=== PATIENT | female | born 1995 | race American Indian/Alaskan Native ===

== ENCOUNTER 2016-11-05 00:14 | Emergency (ER) | payer OTHER ==
[2016-11-05 03:18] LABS: Hematocrit 44.9 % (30.3-42.9); Hemoglobin 14.9 gm/dl (10.1-14.3); Mean Corpuscular HGB Conc 33 % (30-34); Mean Corpuscular Hemoglobin 28 pg (28-32); Mean Corpuscular Volume 83 fl (79-97); Platelet Count 303 K/mm3 (140-440); Red Blood Count 5.41 M/mm3 (3.65-5.03); Red Cell Distribution Width 12.9 % (13.2-15.2); White Blood Count 13.2 K/mm3 (4.5-11.0)
[2016-11-05 03:44] LABS: Alanine Aminotransferase 37 units/L (7-56); Albumin 4.2 g/dL (3.9-5); Albumin/Globulin Ratio 1.2 %; Alkaline Phosphatase 83 units/L (35-129); Anion Gap 16 mmol/L; Bilirubin,Total 0.4 mg/dL (0.1-1.2); Blood Urea Nitrogen 4 mg/dL (7-17); Calcium 9.5 mg/dL (8.4-10.2); Carbon Dioxide 28 mmol/L (22-30); Chloride 94.1 mmol/L (98-107); Glucose 378 mg/dL (65-100); Lipase 33 units/L (13-60); Potassium 4.2 mmol/L (3.6-5.0); Sodium 134 mmol/L (137-145); Total Protein 7.7 g/dL (6.3-8.2)
[2016-11-05 03:59] LABS: Blastocytes % (Manual) 0 %
[2016-11-05 04:01] LABS: Basophils % (Manual) 0 % (0.0-1.8)
[2016-11-05 04:02] LABS: Diff Status Complete; RBC Morphology Normal; Smudge Cells Few
[2016-11-05 05:55] LABS: Bacteria,Urine 1+ /HPF (Negative); Bilirubin,Urine NEG (Negative); Blood,Urine SM (Negative); Ketones,Urine TR mg/dL (Negative); Leukocyte Esterase,Urine SM (Negative); Mucus,Urine FEW /HPF; Nitrite,Urine NEG (Negative); Protein,Urine <15 mg/dL mg/dL (Negative); Urobilinogen,Urine < 2.0 mg/dL (<2.0)
[2016-11-05] MEDS ORDERED: NACL 0.9% 1000 ML IV ONE ×2 (10:30→13:53)
--- NOTE | 2016-11-05 11:35 | Emergency Department Report ---
HPI - General Chief Complaint: Abdominal Pain Time Seen by Provider: 11/05/16 10:21 - HPI HPI: Chief complaint: Abdominal pain, back pain HPI: Patient complains of intermittent abdominal pain for the last week and half. Patient denies nausea vomiting or diarrhea. Patient states it lasts about 10 minutes. Patient is currently not having any pain at all. Patient denies polyuria or polydipsia, vaginal discharge or dysuria. Patient has not been taking her metformin and she does not have strips for her Accu-Chek. Patient also complains of occasional nipple pain but is not currently experiencing this. Mode of arrival: [private car] Source: [Patient] Began: 2 weeks Duration: See above Context: See above. Patient is a hrg-[id number]-[id number] diabetic who is noncompliant with her metformin Quality: Crampy Severity: Currently 0 out of 10 Improved with: Nothing Worsened with: Nothing Associated signs and symptoms: See above ED Past Medical Hx - Past Medical History Previous Medical History?: Yes Hx Diabetes: Yes (type 2) - Surgical History Past Surgical History?: No - Social History Smoking Status: Current Every Day Smoker Substance Use Type: None - Medications Home Medications: Home Medications Medication Instructions Recorded Confirmed Last Taken Type Nitrofurantoin [place]/M-Cryst 100 mg PO Q12HR #14 capsule 11/05/16 Unknown Rx [Macrobid CAP] metFORMIN [Glucophage] 500 mg PO BID #60 tablet 11/05/16 Unknown Rx ED Review of Systems ROS: Stated complaint: LOWER BACK PAIN AND ABD PAIN Other details as noted in HPI ROS Constitutional: No fever ENT: No uri symptoms Cardiovascular: No chest pain Respiratory: No sob or cough GI: No nausea vomiting or diarrhea : No dysuria frequency or urgency, Skin: No rash Neuro: No focal weakness or numbness Psych: No depression Tai/lymph: No edema Physical Exam - Physical Exam Vital Signs: Vital Signs 11/05/16 01:34 Temperature 97.9 F Pulse Rate 78 Blood Pressure 146/92 O2 Sat by Pulse 99 Oximetry Physical Exam: GENERAL: The patient is a morbidly obese -K[place] female in no acute distress. HEENT: Normocephalic. Atraumatic. Extraocular motions are intact. Patient has moist mucous membranes. NECK: Supple. No meningitic signs are noted. There is no adenopathy noted. CHEST/LUNGS: Clear to auscultation. There is no respiratory distress noted. HEART/CARDIOVASCULAR: Regular. There is no tachycardia. There is no gallop rub or murmur. ABDOMEN: Abdomen is soft, nontender. Patient has normal bowel sounds. There is no abdominal distention. SKIN: There is no rash. There is no edema. There is no diaphoresis. NEURO: The patient is awake, alert, and oriented. The patient is cooperative. The patient has no focal neurologic deficits. The patient has normal speech. MUSCULOSKELETAL: There is no tenderness or deformity. There is no limitation range of motion. There is no evidence of acute injury. ED Course Vital Signs 11/05/16 01:34 Temperature 97.9 F Pulse Rate 78 Blood Pressure 146/92 O2 Sat by Pulse 99 Oximetry - Reevaluation(s) Reevaluation #1: 11/05/16 11:34 Patient is given 2 L of normal saline and 3 units of regular insulin IV. 11/05/16 13:58 Patient's repeat Accu-Chek was 325 and she will be given another liter of normal saline and 5 units of regular insulin. 11/05/16 14:36 Repeat Accu-Chek 236. ED Medical Decision Making - Lab Data Result diagrams: 11/05/16 01:54 11/05/16 01:54 Critical care attestation.: If time is entered above; I have spent that time in minutes in the direct care of this critically ill patient, excluding procedure time. ED Disposition Clinical Impression: Hyperglycemia due to type 2 diabetes mellitus Qualifiers: Diabetes mellitus long term care phlebotomist insulin use: unspecified longterm insulin use status Qualified Code(s): E11.65 - Type 2 diabetes mellitus with hyperglycemia UTI (urinary tract infection) Qualifiers: Urinary tract infection type: acute cystitis Hematuria presence: without hematuria Qualified Code(s): N30.00 - Acute cystitis without hematuria Disposition: DISCHARGED TO HOME OR SELFCARE Is pt being admited?: No Does the pt Need Aspirin: No Instructions: Abdominal Pain (ED), Diabetes Mellitus Type 2 in Adults (ED), Urinary Tract Infection in Women (ED) Prescriptions: metFORMIN [Glucophage] 500 mg PO BID #60 tablet Nitrofurantoin [place]/M-Cryst [Macrobid CAP] 100 mg PO Q12HR #14 capsule Referrals: [facility] [Provider Group] - 3-5 Days Time of Disposition: 14:41
[2016-11-05 14:42] VITALS: BP 124/74
== END 2016-11-05 15:15 | disposition home or self-care (01) ==
LOC: ED 00:14
DX: N30.00 Acute cystitis without hematuria (principal); E11.65 Type 2 diabetes mellitus with hyperglycemia; F17.200 Nicotine dependence, unspecified, uncomplicated; Z79.899 Other long term (current) drug therapy; Z79.84 Long term (current) use of oral hypoglycemic drugs
CPT/HCPCS: 36415; 80053; 81001; 81025; 82962; 83690; 85007; 85025; 96361; 96374; 96376; 99283; J7030; J1815

== ENCOUNTER 2016-11-23 00:14 | Emergency (ER) | payer SELFPAY ==
[2016-11-23 04:49] LABS: Bacteria,Urine 1+ /HPF (Negative); Bilirubin,Urine NEG (Negative); Blood,Urine SM (Negative); Ketones,Urine TR mg/dL (Negative); Leukocyte Esterase,Urine MOD (Negative); Nitrite,Urine NEG (Negative); Protein,Urine <15 mg/dL mg/dL (Negative); Urobilinogen,Urine < 2.0 mg/dL (<2.0)
[2016-11-23] MEDS ORDERED: MOTRIN PO ONE (05:06)
--- NOTE | 2016-11-23 05:11 | Emergency Department Report ---
HPI - General Chief Complaint: Abdominal Pain Time Seen by Provider: 11/23/16 04:45 - HPI HPI: 20-year-old -[place] female with a past medical history of diabetes type 2 since the age of 14 comes in complaining of lower abdominal pain 2 weeks. She denies any dysuria she denies any vaginal bleeding or vaginal discharge. She also denies any fever no nausea no vomiting. She complains of sharp pains on her nipples. Patient reports he has not taken any over-the- counter pain medication to address any of her pain. ED Past Medical Hx - Past Medical History Previous Medical History?: Yes Hx Diabetes: Yes (type 2) - Surgical History Past Surgical History?: No - Social History Smoking Status: Current Every Day Smoker Substance Use Type: Alcohol - Medications Home Medications: Home Medications Medication Instructions Recorded Confirmed Last Taken Type Nitrofurantoin [place]/M-Cryst 100 mg PO Q12HR #14 capsule 11/05/16 Unknown Rx [Macrobid CAP] metFORMIN [Glucophage] 500 mg PO BID #60 tablet 11/05/16 Unknown Rx Cephalexin [Keflex] 500 mg PO BID #14 capsule 11/23/16 Unknown Rx Ibuprofen [Motrin 800 MG tab] 800 mg PO Q8HR #30 tablet 11/23/16 Unknown Rx ED Review of Systems ROS: Stated complaint: ABD PAIN Other details as noted in HPI Physical Exam - Physical Exam Vital Signs: Vital Signs 11/23/16 00:35 Temperature 98.4 F Pulse Rate 106 H Respiratory 18 Rate Blood Pressure 136/96 O2 Sat by Pulse 99 Oximetry Physical Exam: GENERAL: Alert and oriented x3, no apparent distress, Normal Gait, atraumatic. HEAD: Head is normocephalic and a-traumatic. LUNGS: Symetrical with respiration, No wheezing, no rales or crackles, CTAB. HEART: S1, S2 present, regular rate and rhythm without murmur, no rubs, no gallops. ABDOMEN: No organomegaly was noted,Positive bowel sounds, soft, and non- distended. . Suprapubic tenderness. NO CVA tenderness. BREAST: Symetrical, Supple bilaterally, No Masses, lumps, lesions, ulcerations. NEUROLOGIC: No focal Deficit, Cranial nerves II through XII are grossly intact. No loss of sensation, No facial droop, PSYCHIATRIC: Mood is congruent with affect, denies suicidal or homicidal ideations. SKIN: Warm and dry, No lesions, No ulceration or induration present ED Course Vital Signs 11/23/16 00:35 Temperature 98.4 F Pulse Rate 106 H Respiratory 18 Rate Blood Pressure 136/96 O2 Sat by Pulse 99 Oximetry Critical care attestation.: If time is entered above; I have spent that time in minutes in the direct care of this critically ill patient, excluding procedure time. ED Disposition Clinical Impression: UTI (urinary tract infection) Qualifiers: Urinary tract infection type: site unspecified Hematuria presence: without hematuria Qualified Code(s): N39.0 - Urinary tract infection, site not specified Disposition: DISCHARGED TO HOME OR SELFCARE Is pt being admited?: No Does the pt Need Aspirin: No Condition: Stable Instructions: Abdominal Pain (ED) Additional Instructions: Please take antibiotics as prescribed. It is very important for her to follow- up with the primary care provider. Take ibuprofen for pain. Prescriptions: Cephalexin [Keflex] 500 mg PO BID #14 capsule Ibuprofen [Motrin 800 MG tab] 800 mg PO Q8HR #30 tablet Referrals: PRIMARY CARE [Primary Care Provider] - 3-5 Days Forms: Work/School Release Form(ED), Accompanied Note
[2016-11-23 05:30] VITALS: BP 109/68
== END 2016-11-23 05:29 | disposition home or self-care (01) ==
LOC: ED 00:14
DX: N39.0 Urinary tract infection, site not specified (principal); E11.9 Type 2 diabetes mellitus without complications; F17.200 Nicotine dependence, unspecified, uncomplicated
CPT/HCPCS: 81001; 81025; 99283

== ENCOUNTER 2016-12-15 01:24 | Emergency (ER) | payer SELFPAY ==
[2016-12-15 02:46] LABS: Hematocrit 43.6 % (30.3-42.9); Hemoglobin 14.4 gm/dl (10.1-14.3); Mean Corpuscular HGB Conc 33 % (30-34); Mean Corpuscular Hemoglobin 28 pg (28-32); Mean Corpuscular Volume 84 fl (79-97); Platelet Count 290 K/mm3 (140-440); Red Cell Distribution Width 13.2 % (13.2-15.2); White Blood Count 12.3 K/mm3 (4.5-11.0)
[2016-12-15 03:08] LABS: Alanine Aminotransferase 35 units/L (7-56); Albumin 4.2 g/dL (3.9-5); Albumin/Globulin Ratio 1.4 %; Alkaline Phosphatase 90 units/L (35-129); Anion Gap 18 mmol/L; BUN/Creatinine Ratio 11.42; Bilirubin,Total 0.3 mg/dL (0.1-1.2); Blood Urea Nitrogen 8 mg/dL (7-17); Calcium 9.9 mg/dL (8.4-10.2); Carbon Dioxide 27 mmol/L (22-30); Chloride 94.9 mmol/L (98-107); Glucose 400 mg/dL (65-100); Lipase 24 units/L (13-60); Potassium 4.2 mmol/L (3.6-5.0); Sodium 136 mmol/L (137-145); Total Protein 7.3 g/dL (6.3-8.2)
[2016-12-15 05:36] LABS: Bilirubin,Urine NEG (Negative); Blood,Urine NEG (Negative); Ketones,Urine TR mg/dL (Negative); Leukocyte Esterase,Urine TR (Negative); Nitrite,Urine NEG (Negative); Protein,Urine <15 mg/dL mg/dL (Negative); Urobilinogen,Urine < 2.0 mg/dL (<2.0)
[2016-12-15 06:12] LABS: Anisocytosis 1+; Basophils % (Manual) 0 % (0.0-1.8); Blastocytes % (Manual) 0 %
[2016-12-15 06:13] LABS: Diff Status Complete; Platelet Estimate Appe
--- NOTE | 2016-12-15 06:27 | Emergency Department Report ---
HPI - General Chief Complaint: Abdominal Pain Time Seen by Provider: 12/15/16 05:58 - HPI HPI: This is a 21-year-old Afro-Hungarian female presents to the emergency department with complaint of chronic UTI and yeast infections and occasional "side pain." She denies any current vaginal discharge, vaginal bleeding, current abdominal pain, nausea, vomiting, fever. Patient finished a course of Macrobid last month and also use some Monistat. She has a history of lat-pjmqzix-pkadifhqc diabetes but says she has been out of her metformin for the past 3-6 months that she does not have a primary care doctor and cannot get the refills consistently. No recent travel or sick contacts at home. ED Past Medical Hx - Past Medical History Previous Medical History?: Yes Hx Diabetes: Yes (type 2) - Surgical History Past Surgical History?: No - Social History Smoking Status: Current Every Day Smoker Substance Use Type: Alcohol - Medications Home Medications: Home Medications Medication Instructions Recorded Confirmed Last Taken Type Nitrofurantoin [place]/M-Cryst 100 mg PO Q12HR #14 capsule 11/05/16 Unknown Rx [Macrobid CAP] Cephalexin [Keflex] 500 mg PO BID #14 capsule 11/23/16 Unknown Rx Ibuprofen [Motrin 800 MG tab] 800 mg PO Q8HR #30 tablet 11/23/16 Unknown Rx Nystatin [Nystop Powder] 1 applicatio TP BID #1 bottle 12/15/16 Unknown Rx metFORMIN [Glucophage] 500 mg PO BID #60 tablet 12/15/16 Unknown Rx ED Review of Systems ROS: Stated complaint: ABD PAIN,POSS UTI Other details as noted in HPI Comment: All other systems reviewed and negative Constitutional: denies: chills, fever Eyes: denies: eye pain, eye discharge, vision change ENT: denies: ear pain, throat pain Respiratory: denies: cough, shortness of breath, wheezing Cardiovascular: denies: chest pain, palpitations Gastrointestinal: denies: nausea, vomiting Genitourinary: dysuria. denies: discharge Musculoskeletal: denies: back pain, joint swelling, arthralgia Skin: denies: rash, lesions Neurological: denies: headache, weakness, paresthesias Physical Exam - Physical Exam Vital Signs: Vital Signs 12/15/16 12/15/16 01:57 06:04 Temperature 98.2 F Pulse Rate 92 H 81 Respiratory 20 18 Rate Blood Pressure 145/90 Blood Pressure 125/83 [Left] O2 Sat by Pulse 97 99 Oximetry Physical Exam: GENERAL: The patient is well-developed well-nourished. HEENT: Normocephalic. Atraumatic. Extraocular motions are intact. Patient has moist mucous membranes. Pupils equal reactive to light bilaterally. NECK: Supple. Trachea is midline. CHEST/LUNGS: Clear to auscultation. There is no respiratory distress noted. HEART/CARDIOVASCULAR: Regular. There is no tachycardia. There is no gallop rub or murmur. ABDOMEN: Abdomen is soft, nontender. Patient has normal bowel sounds. There is no abdominal distention. No guarding or rebound tenderness. SKIN: Skin is warm and dry. There is some redness and irritation to the bilateral labia concerning for Joanie yeast infection. NEURO: The patient is awake, alert, and oriented. The patient is cooperative. The patient has no focal neurologic deficits. The patient has normal speech. MUSCULOSKELETAL: There is no tenderness or deformity. There is no limitation range of motion. There is no evidence of acute injury. : No vaginal or cervical lesions seen. Cervical os is closed. There is no vaginal bleeding. There is thick white discharge seen appears consistent with yeast. ED Course Vital Signs 12/15/16 12/15/16 01:57 06:04 Temperature 98.2 F Pulse Rate 92 H 81 Respiratory 20 18 Rate Blood Pressure 145/90 Blood Pressure 125/83 [Left] O2 Sat by Pulse 97 99 Oximetry ED Medical Decision Making - Lab Data Result diagrams: 12/15/16 02:23 12/15/16 02:23 - Medical Decision Making 21-year-old female presents with complaints of chronic UTI, chronic yeast infections and some intermittent abdominal side pain. However the patient denies any current dysuria, vaginal bleeding, abdominal pain, nausea, vomiting or fever. Her labs and unremarkable. Urinalysis does not show any UTI. Belly labs are normal. There is no significant leukocytosis. Vital signs stable throughout her ED course. Since patient does not have any current abdominal pain, I did not feel that any imaging was necessary at this time. Patient is not . A pelvic exam was done that shows thick white non-malodorous yeasty appearing discharge. A wet prep was sent that was negative for Trichomonas or BV. Patient treated with some Diflucan and due to the redness around the labia and inguinal region, she will get some nystatin. She'll be given referrals for primary care and encouraged to return to the ER with any worsening of her symptoms or any acute distress. Patient presented with hyperglycemia with a blood sugar of about 400. She was given some subcutaneous insulin without much improvement but then was given IV fluid and IV insulin and his come down to a more reasonable level. Patient will be given a prescription for her metformin. There are no signs of DKA or HHNK. - Differential Diagnosis UTI, , yeast infection, PID Critical Care Time: No Critical care attestation.: If time is entered above; I have spent that time in minutes in the direct care of this critically ill patient, excluding procedure time. ED Disposition Clinical Impression: Joanie infection of genital region, Yeast infection Hyperglycemia due to type 2 diabetes mellitus Qualifiers: Diabetes mellitus continuous churn buttermaker insulin use: unspecified usp insulin use status Qualified Code(s): E11.65 - Type 2 diabetes mellitus with hyperglycemia Disposition: DISCHARGED TO HOME OR SELFCARE Is pt being admited?: No Condition: Stable Instructions: Diabetes Mellitus Type 2 in Adults (ED), Vulvovaginal Candidiasis (ED) Additional Instructions: These follow-up with a primary care doctor and [employer] WORKER. Return to the emergency department with any worsening of your symptoms or any acute distress. Please try and stay away from foods that are high in sugar and carbohydrates to try and help with your blood sugar. Prescriptions: metFORMIN [Glucophage] 500 mg PO BID #60 tablet Nystatin [Nystop Powder] 1 applicatio TP BID #1 bottle Referrals: PRIMARY CARE, [Primary Care Provider] - 3-5 Days [facility] [Outside] - 3-5 Days [facility] [Outside] - 3-5 Days [facility] [Outside] - 3-5 Days [facility] [Outside] - 3-5 Days Time of Disposition: 07:49
[2016-12-15] MEDS ORDERED: DIFLUCAN PO ONE (08:00)
[2016-12-15] MEDS ORDERED: NACL 0.9% 1000 ML 1,000 ML IV ONE (09:55)
[2016-12-15 12:45] VITALS: BP 148/86
== END 2016-12-15 12:47 | disposition home or self-care (01) ==
LOC: ED 01:24
DX: B37.49 Other urogenital candidiasis (principal); E11.65 Type 2 diabetes mellitus with hyperglycemia; F17.200 Nicotine dependence, unspecified, uncomplicated
CPT/HCPCS: 36415; 80053; 81001; 81025; 82805; 82962; 83690; 85007; 85025; 87210; 96361; 96372; 96374; 99284; J7030; J1815

== ENCOUNTER 2017-01-12 16:04 | Emergency (ER) | payer SELFPAY ==
[2017-01-12 18:21] LABS: Bacteria,Urine 3+ /HPF (Negative); Bilirubin,Urine NEG (Negative); Blood,Urine MOD (Negative); Ketones,Urine 20 mg/dL (Negative); Leukocyte Esterase,Urine LG (Negative); Mucus,Urine FEW /HPF; Nitrite,Urine NEG (Negative); Urobilinogen,Urine < 2.0 mg/dL (<2.0)
[2017-01-12 18:27] LABS: WBC,Urine > 182.0 /HPF (0.0-6.0)
[2017-01-12] MEDS ORDERED: ROCEPHIN/NS 1 GM/50 ML 1 GM/50 ML BAG IV ONE (19:59)
[2017-01-12] MEDS ORDERED: NACL 0.9% 1000 ML 1,000 ML IV ONE ×2 (19:59→23:09)
--- NOTE | 2017-01-12 20:05 | Emergency Department Report ---
<SHANI MENDEZ M - Last Filed: 01/12/17 23:17> ED General Adult HPI - General Chief complaint: Urogenital-Female Stated complaint: POSS UTI Time Seen by Provider: 01/12/17 19:35 Source: patient Mode of arrival: Ambulatory Limitations: No Limitations - History of Present Illness Initial comments: PT c/o urinary pressure, worse at the end of urination and hematuria x 1 week. PT states she will sometimes see blood clots when she voids. PT denies n/v. PT states she was not treated for UTI in October. PT states the last time she was seen in the ED she was given refill of Metformin. PT states she stopped taking it but recently restarted taking it. PT denies vaginal complaints. MD Complaint: dysuria Onset/Timin -: Gradual, week(s) Location: abdomen Radiation: non-radiation Severity scale (0 -10): 7 Quality: burning, sharp Consistency: intermittent Worsens with: other (urination ) Associated Symptoms: denies other symptoms. denies: fever/chills, loss of appetite, nausea/vomiting, rash, shortness of breath Treatments Prior to Arrival: none - Related Data Previous Rx's Medication Instructions Recorded Last Taken Type metFORMIN [Glucophage] 500 mg PO BID #60 tablet 12/15/16 01/12/17 Rx Ciprofloxacin HCl [Ciprofloxacin 500 mg PO Q12HR #20 tab 01/13/17 Unknown Rx TAB] Allergies Allergy/AdvReac Type Severity Reaction Status Date / Time No Known Allergies Allergy Verified 05/05/15 06:47 ED Review of Systems ROS: Stated complaint: POSS UTI Other details as noted in HPI Comment: All other systems reviewed and negative Constitutional: denies: chills, fever Endocrine: denies: increased urine Gastrointestinal: abdominal pain. denies: nausea, vomiting Genitourinary: dysuria, frequency, hematuria, other (retention ). denies: discharge, abnormal menses Musculoskeletal: denies: back pain ED Past Medical Hx - Past Medical History Previous Medical History?: No Hx Hypertension: No Hx CVA: No Hx Heart Attack/AMI: No Hx Congestive Heart Failure: No Hx Diabetes: Yes (type 2) Hx Deep Vein Thrombosis: No Hx Pulmonary Embolism: No Hx GERD: No Hx Liver Disease: No Hx Renal Disease: No Hx of Cancer: No Hx Arthritis: No Hx Headaches / Migraines: No Hx Seizures: No Hx Kidney Stones: No Hx Psychiatric Treatment: No Hx Asthma: No Hx COPD: No Hx Tuberculosis: No Hx Dementia: No Hx HIV: No - Surgical History Past Surgical History?: No Hx Coronary Stent: No Hx Open Heart Surgery: No Hx Pacemaker: No Hx Internal Defibrillator: No Hx Cholecystectomy: No Hx Appendectomy: No Hx Breast Surgery: No - Social History Smoking Status: Current Every Day Smoker Substance Use Type: Alcohol - Medications Home Medications: Home Medications Medication Instructions Recorded Confirmed Last Taken Type metFORMIN [Glucophage] 500 mg PO BID #60 tablet 12/15/16 01/12/17 01/12/17 Rx Ciprofloxacin HCl [Ciprofloxacin 500 mg PO Q12HR #20 tab 01/13/17 Unknown Rx TAB] ED Physical Exam - General Limitations: No Limitations General appearance: alert, in no apparent distress, obese - Head Head exam: Present: atraumatic, normocephalic, normal inspection - Eye Eye exam: Present: normal appearance. Absent: conjunctival injection - ENT ENT exam: Present: normal exam, normal external ear exam - Neck Neck exam: Present: normal inspection, full ROM - Respiratory Respiratory exam: Present: normal lung sounds bilaterally. Absent: respiratory distress, chest wall tenderness - Cardiovascular Cardiovascular Exam: Present: regular rate, normal rhythm, normal heart sounds - GI/Abdominal GI/Abdominal exam: Present: soft, tenderness (suprapubic ), normal bowel sounds. Absent: guarding, rebound - Extremities Exam Extremities exam: Present: normal inspection, full ROM - Back Exam Back exam: Present: normal inspection, full ROM. Absent: tenderness, CVA tenderness (R), CVA tenderness (L), muscle spasm, paraspinal tenderness, vertebral tenderness - Neurological Exam Neurological exam: Present: alert, oriented X3 - Psychiatric Psychiatric exam: Present: normal affect, normal mood - Skin Skin exam: Present: warm, dry, intact ED Course Vital Signs 01/12/17 01/12/17 01/13/17 16:44 19:38 00:04 Temperature 98.6 F Pulse Rate 89 97 H 90 Respiratory 16 18 18 Rate Blood Pressure 131/85 Blood Pressure 139/77 155/91 [Left] O2 Sat by Pulse 97 100 100 Oximetry - Reevaluation(s) Reevaluation #1: 01/12/17 20:06 PT aware of plan of care. No questions at this time Reevaluation #2: 01/12/17 21:55 pt aware of her bg and plan of care. no questions at this time. 01/12/17 23:04 Dr Olivarez aware of pt and pt's most recent accucheck. advises venous ph. pt aware 01/12/17 23:17 report given to GETACHEW Ball. - Pulse Oximetry Interpretation Digit-Finger Initial Pulse Oximetry Readin Actions Taken: none ED Medical Decision Making - Lab Data Result diagrams: 01/12/17 20:03 01/12/17 20:03 Lab Results 01/12/17 01/12/17 01/12/17 Range/Units 17:35 17:35 20:03 WBC 12.5 H (4.5-11.0) K/mm3 RBC 5.43 H (3.65-5.03) M/mm3 Hgb 15.1 H (10.1-14.3) gm/dl Hct 45.6 H (30.3-42.9) % MCV 84 (79-97) fl MCH 28 (28-32) pg MCHC 33 (30-34) % RDW 13.1 L (13.2-15.2) % Plt Count 296 (140-440) K/mm3 Lymph % (Auto) 34.8 (13.4-35.0) % [place] % (Auto) 4.5 (0.0-7.3) % Eos % (Auto) 2.9 (0.0-4.3) % Baso % (Auto) 0.5 (0.0-1.8) % Lymph # 4.3 (1.2-5.4) K/mm3 [place] # 0.6 (0.0-0.8) K/mm3 Eos # 0.4 (0.0-0.4) K/mm3 Baso # 0.1 (0.0-0.1) K/mm3 Seg Neutrophils % 57.3 (40.0-70.0) % Seg Neutrophils # 7.1 (1.8-7.7) K/mm3 Sodium (137-145) mmol/L Potassium (3.6-5.0) mmol/L Chloride (98-107) mmol/L Carbon Dioxide (22-30) mmol/L Anion Gap mmol/L BUN (7-17) mg/dL Creatinine (0.7-1.2) mg/dL Estimated GFR ml/min BUN/Creatinine Ratio % Glucose (65-100) mg/dL POC Glucose (70-105) Calcium (8.4-10.2) mg/dL Total Bilirubin (0.1-1.2) mg/dL AST (5-40) units/L ALT (7-56) units/L Alkaline Phosphatase (35-129) units/L Total Protein (6.3-8.2) g/dL Albumin (3.9-5) g/dL Albumin/Globulin Ratio % Urine Color Yellow (Yellow) Urine Turbidity Cloudy (Clear) Urine pH 5.0 (5.0-7.0) Ur Specific [place] 1.033 H (1.003-1.030) Urine Protein 100 mg/dl (Negative) mg/dL Urine Glucose (UA) >=500 (Negative) mg/dL Urine Ketones 20 (Negative) mg/dL Urine Blood Mod (Negative) Urine Nitrite Neg (Negative) Urine Bilirubin Neg (Negative) Urine Urobilinogen < 2.0 (<2.0) mg/dL Ur Leukocyte Esterase Lg (Negative) Urine WBC (Auto) > 182.0 H (0.0-6.0) /HPF Urine RBC (Auto) 60.0 (0.0-6.0) /HPF U Epithel Cells (Auto) 20.0 H (0-13.0) /HPF Urine Bacteria (Auto) 3+ (Negative) /HPF Urine Mucus Few /HPF Urine HCG, Qual Negative (Negative) 01/12/17 01/12/17 Range/Units 20:03 21:32 WBC (4.5-11.0) K/mm3 RBC (3.65-5.03) M/mm3 Hgb (10.1-14.3) gm/dl Hct (30.3-42.9) % MCV (79-97) fl MCH (28-32) pg MCHC (30-34) % RDW (13.2-15.2) % Plt Count (140-440) K/mm3 Lymph % (Auto) (13.4-35.0) % [place] % (Auto) (0.0-7.3) % Eos % (Auto) (0.0-4.3) % Baso % (Auto) (0.0-1.8) % Lymph # (1.2-5.4) K/mm3 [place] # (0.0-0.8) K/mm3 Eos # (0.0-0.4) K/mm3 Baso # (0.0-0.1) K/mm3 Seg Neutrophils % (40.0-70.0) % Seg Neutrophils # (1.8-7.7) K/mm3 Sodium 134 L (137-145) mmol/L Potassium 4.0 (3.6-5.0) mmol/L Chloride 93.7 L (98-107) mmol/L Carbon Dioxide 26 (22-30) mmol/L Anion Gap 18 mmol/L BUN 6 L (7-17) mg/dL Creatinine 0.5 L (0.7-1.2) mg/dL Estimated GFR > 60 ml/min BUN/Creatinine Ratio 12.00 % Glucose 486 H (65-100) mg/dL POC Glucose 429 H (70-105) Calcium 9.7 (8.4-10.2) mg/dL Total Bilirubin 0.30 (0.1-1.2) mg/dL AST 19 (5-40) units/L ALT 26 (7-56) units/L Alkaline Phosphatase 87 (35-129) units/L Total Protein 6.8 (6.3-8.2) g/dL Albumin 4.0 (3.9-5) g/dL Albumin/Globulin Ratio 1.4 % Urine Color (Yellow) Urine Turbidity (Clear) Urine pH (5.0-7.0) Ur Specific [place] (1.003-1.030) Urine Protein (Negative) mg/dL Urine Glucose (UA) (Negative) mg/dL Urine Ketones (Negative) mg/dL Urine Blood (Negative) Urine Nitrite (Negative) Urine Bilirubin (Negative) Urine Urobilinogen (<2.0) mg/dL Ur Leukocyte Esterase (Negative) Urine WBC (Auto) (0.0-6.0) /HPF Urine RBC (Auto) (0.0-6.0) /HPF U Epithel Cells (Auto) (0-13.0) /HPF Urine Bacteria (Auto) (Negative) /HPF Urine Mucus /HPF Urine HCG, Qual (Negative) - Differential Diagnosis uti, non compliance, dka Critical Care Time: No Critical care attestation.: If time is entered above; I have spent that time in minutes in the direct care of this critically ill patient, excluding procedure time. ED Disposition Clinical Impression: Hyperglycemia due to type 2 diabetes mellitus Urinary tract infection Qualifiers: Urinary tract infection type: site unspecified Hematuria presence: with hematuria Qualified Code(s): N39.0 - Urinary tract infection, site not specified Disposition: DISCHARGED TO HOME OR SELFCARE Condition: Good Instructions: Urinary Tract Infection in Women (ED), Diabetes Mellitus Type 2 in Adults (ED), Meal Planning with Diabetes Exchanges (DC), DASH Eating Plan (ED ) Prescriptions: Ciprofloxacin HCl [Ciprofloxacin TAB] 500 mg PO Q12HR #20 tab Referrals: [facility] [Outside] - 3-5 Days [facility] [Outside] - 3-5 Days YANNICK DAILEY MD [Staff Physician] - 3-5 Days PRIMARY CAREMD [Primary Care Provider] - 3-5 Days GARIMA JORDAN MD [Staff Physician] - 3-5 Days <STEPHANIE BALL - Last Filed: 01/13/17 01:01> ED Medical Decision Making - Lab Data Result diagrams: 01/12/17 20:03 01/12/17 20:03 - Medical Decision Making Lab work reviewed and discussed with patient in room. Initial findings were that of patient's blood sugar being 486. Patient was given 2 L of IV fluids 10 units of subcutaneous insulin, 6 units of intravenous insulin, IV Rocephin in the ER for urinary tract infection. After treatment in the ER patient states that she is feeling better. Repeat blood sugar is 163. Patient's venous pH within normal limits. Patient does state that she has metformin at home and she promises that she will be more consistent with taking it in the future. I will continue patient on some outpatient antibiotics and refer patient to endocrinology for further evaluation and control of her diabetes. Patient is nontoxic and hemodynamically stable at time of discharge and patient is ready to go home. ED Disposition Is pt being admited?: No Does the pt Need Aspirin: No Time of Disposition: 01:00
[2017-01-12 20:37] LABS: Alanine Aminotransferase 26 units/L (7-56); Albumin/Globulin Ratio 1.4 %; Alkaline Phosphatase 87 units/L (35-129); Anion Gap 18 mmol/L; Blood Urea Nitrogen 6 mg/dL (7-17); Calcium 9.7 mg/dL (8.4-10.2); Carbon Dioxide 26 mmol/L (22-30); Chloride 93.7 mmol/L (98-107); Glucose 486 mg/dL (65-100); Sodium 134 mmol/L (137-145); Total Protein 6.8 g/dL (6.3-8.2)
[2017-01-12 20:49] LABS: Basophils % (Auto) 0.5 % (0.0-1.8); Eosinophils % (Auto) 2.9 % (0.0-4.3); Hematocrit 45.6 % (30.3-42.9); Hemoglobin 15.1 gm/dl (10.1-14.3); Mean Corpuscular HGB Conc 33 % (30-34); Mean Corpuscular Hemoglobin 28 pg (28-32); Mean Corpuscular Volume 84 fl (79-97); Platelet Count 296 K/mm3 (140-440); Red Blood Count 5.43 M/mm3 (3.65-5.03); Red Cell Distribution Width 13.1 % (13.2-15.2); White Blood Count 12.5 K/mm3 (4.5-11.0)
[2017-01-12] MEDS ORDERED: TORADOL IV ONE (21:19)
[2017-01-13 00:05] VITALS: BP 155/91
== END 2017-01-13 01:07 | disposition home or self-care (01) ==
LOC: ED 16:04
DX: E11.65 Type 2 diabetes mellitus with hyperglycemia (principal); N39.0 Urinary tract infection, site not specified; F17.200 Nicotine dependence, unspecified, uncomplicated
CPT/HCPCS: 36415; 80053; 81001; 81025; 82805; 82962; 85025; 87076; 87086; 87186; 96361; 96365; 96372; 96375; 99284; J0696; J1885; J7030; J1815

== ENCOUNTER 2017-03-09 12:03 | Emergency (ER) | payer SELFPAY ==
[2017-03-09 12:39] LABS: Hematocrit 44.4 % (30.3-42.9); Hemoglobin 14.7 gm/dl (10.1-14.3); Mean Corpuscular HGB Conc 33 % (30-34); Mean Corpuscular Hemoglobin 28 pg (28-32); Mean Corpuscular Volume 84 fl (79-97); Platelet Count 321 K/mm3 (140-440); Red Blood Count 5.28 M/mm3 (3.65-5.03); Red Cell Distribution Width 12.9 % (13.2-15.2); White Blood Count 10.1 K/mm3 (4.5-11.0)
[2017-03-09 13:13] LABS: Anion Gap 18 mmol/L; Blood Urea Nitrogen 5 mg/dL (7-17); Carbon Dioxide 24 mmol/L (22-30); Chloride 96.5 mmol/L (98-107); Glucose 344 mg/dL (65-100); Potassium 3.9 mmol/L (3.6-5.0); Sodium 135 mmol/L (137-145)
[2017-03-09 13:29] LABS: Bacteria,Urine 1+ /HPF (Negative); Bilirubin,Urine NEG (Negative); Blood,Urine MOD (Negative); Ketones,Urine 20 mg/dL (Negative); Leukocyte Esterase,Urine NEG (Negative); Mucus,Urine FEW /HPF; Nitrite,Urine NEG (Negative); Protein,Urine <15 mg/dL mg/dL (Negative); Urobilinogen,Urine < 2.0 mg/dL (<2.0)
--- NOTE | 2017-03-09 15:01 | Emergency Department Report ---
ED Female HPI - General Chief complaint: Vaginal Bleeding Stated complaint: CONSTANT MENSTRAL CYCLE/ABD PAIN Time Seen by Provider: 03/09/17 14:49 Source: patient, RN notes reviewed Mode of arrival: Ambulatory Limitations: No Limitations - History of Present Illness Initial comments: a 21-year-old female. She is previously unknown to me. She does not have a primary care doctor. She does not have a manager market development. Last menstrual period is within the past 24 hours. Patient complains of suprapubic crampy lower abdominal pain. She has used 8 pads in the past 24 hours. She denies headache, neck pain, chest pain, shortness of breath, irritative and obstructive urinary symptoms. She was a crampy suprapubic lower abdominal pain , which is worse than her typical menstrual cramps, although qualitatively similar, only more intense. MD Complaint: vaginal bleeding, pelvic pain -: Gradual Location: suprapubic Severity: moderate Quality: cramping Consistency: constant Improves with: medication Are you Now?: No Associated Symptoms: vaginal bleeding, abdominal pain. denies: vaginal discharge, nausea/vomiting, fever/chills, headaches, loss of appetite, dysuria, hematuria, shortness of breath, syncope, weakness - Related Data Sexually active: Yes Previous Rx's Medication Instructions Recorded Last Taken Type Ibuprofen [Motrin] 600 mg PO Q8H PRN #30 tablet 03/09/17 Unknown Rx Ondansetron [Zofran Odt] 4 mg PO QID PRN #20 tab.rapdis 03/09/17 Unknown Rx Allergies Allergy/AdvReac Type Severity Reaction Status Date / Time No Known Allergies Allergy Verified 05/05/15 06:47 ED Review of Systems ROS: Stated complaint: CONSTANT MENSTRAL CYCLE/ABD PAIN Other details as noted in HPI Constitutional: denies: fever Eyes: denies: eye discharge ENT: denies: epistaxis Respiratory: denies: cough Cardiovascular: denies: chest pain Gastrointestinal: abdominal pain Genitourinary: abnormal menses Musculoskeletal: as per HPI Skin: as per HPI Neurological: as per HPI Psychiatric: as per HPI ED Past Medical Hx - Past Medical History Hx Hypertension: No Hx CVA: No Hx Heart Attack/AMI: No Hx Congestive Heart Failure: No Hx Diabetes: Yes (type 2) Hx Deep Vein Thrombosis: No Hx Pulmonary Embolism: No Hx GERD: No Hx Liver Disease: No Hx Renal Disease: No Hx Arthritis: No Hx Headaches / Migraines: No Hx Seizures: No Hx Kidney Stones: No Hx Psychiatric Treatment: No Hx Asthma: No Hx COPD: No Hx Tuberculosis: No Hx Dementia: No Hx HIV: No - Surgical History Hx Coronary Stent: No Hx Open Heart Surgery: No Hx Pacemaker: No Hx Internal Defibrillator: No Hx Cholecystectomy: No Hx Appendectomy: No Hx Breast Surgery: No - Social History Smoking Status: Current Every Day Smoker Substance Use Type: None - Medications Home Medications: Home Medications Medication Instructions Recorded Confirmed Last Taken Type Ibuprofen [Motrin] 600 mg PO Q8H PRN #30 tablet 03/09/17 Unknown Rx Ondansetron [Zofran Odt] 4 mg PO QID PRN #20 tab.rapdis 03/09/17 Unknown Rx ED Physical Exam - General Limitations: No Limitations General appearance: alert, in no apparent distress - Head Head exam: Present: atraumatic, normocephalic - Eye Eye exam: Present: normal appearance, EOMI. Absent: nystagmus - ENT ENT exam: Present: normal exam, normal orophraynx, mucous membranes moist, normal external ear exam - Neck Neck exam: Present: normal inspection, full ROM. Absent: tenderness, meningismus - Respiratory Respiratory exam: Present: normal lung sounds bilaterally. Absent: respiratory distress, wheezes, rales, rhonchi, stridor, chest wall tenderness, accessory muscle use, decreased breath sounds, prolonged expiratory - Cardiovascular Cardiovascular Exam: Present: regular rate, normal rhythm, normal heart sounds. Absent: systolic murmur, diastolic murmur, rubs, gallop - GI/Abdominal GI/Abdominal exam: Present: soft, tenderness (suprapubic and lower quadrant tenderness. There is no rebound, guarding or peritoneal signs), normal bowel sounds. Absent: distended - External exam: Present: normal external exam Speculum exam: Present: normal speculum exam, vaginal bleeding Bi-manual exam: Present: normal bi-manual exam, other (escorted by nurse Darryl Mendoza). Absent: cervical motion tendernes, adnexal tenderness, adnexal mass - Extremities Exam Extremities exam: Present: normal inspection, normal capillary refill. Absent: tenderness, pedal edema, joint swelling, calf tenderness - Back Exam Back exam: Present: normal inspection, full ROM. Absent: tenderness, CVA tenderness (R), paraspinal tenderness, vertebral tenderness - Neurological Exam Neurological exam: Present: alert, oriented X3, normal gait, other (Extraocular movements intact. Tongue midline. No facial droop. Facial sensation intact to light touch in the V1, V2, V3 distribution bilaterally. 5 and 5 strength in 4 extremities.. Sensation is intact to light touch in 4 extremities.). Absent : motor sensory deficit - Psychiatric Psychiatric exam: Present: normal affect, normal mood - Skin Skin exam: Present: warm, dry, intact, normal color. Absent: rash ED Course Vital Signs 03/09/17 03/09/17 03/09/17 12:14 15:45 15:47 Temperature 98.2 F Pulse Rate 85 68 Respiratory 16 16 16 Rate Blood Pressure 134/96 Blood Pressure 122/77 [Left] O2 Sat by Pulse 96 99 Oximetry 03/09/17 03/09/17 16:38 17:00 Temperature Pulse Rate 70 Respiratory 16 16 Rate Blood Pressure Blood Pressure 118/76 [Left] O2 Sat by Pulse 99 100 Oximetry ED Medical Decision Making - Lab Data Result diagrams: 03/09/17 12:29 03/09/17 12:29 Vital Signs 03/09/17 03/09/17 03/09/17 12:14 15:45 15:47 Temperature 98.2 F Pulse Rate 85 Respiratory 16 16 16 Rate Blood Pressure 134/96 O2 Sat by Pulse 96 Oximetry Labs 03/09/17 03/09/17 03/09/17 12:29 12:29 12:56 WBC 10.1 RBC 5.28 H Hgb 14.7 H Hct 44.4 H MCV 84 MCH 28 MCHC 33 RDW 12.9 L Plt Count 321 Sodium 135 L Potassium 3.9 Chloride 96.5 L Carbon Dioxide 24 Anion Gap 18 BUN 5 L Creatinine 0.4 L Estimated GFR > 60 BUN/Creatinine Ratio 12.50 Glucose 344 H Calcium 9.0 Urine Color Yellow Urine Turbidity Clear Urine pH 5.0 Ur Specific [place] 1.044 H Urine Protein <15 mg/dl Urine Glucose (UA) >=500 Urine Ketones 20 Urine Blood Mod Urine Nitrite Neg Urine Bilirubin Neg Urine Urobilinogen < 2.0 Ur Leukocyte Esterase Neg Urine WBC (Auto) 7.0 H Urine RBC (Auto) 5.0 U Epithel Cells (Auto) 3.0 Urine Bacteria (Auto) 1+ Urine Mucus Few Urine HCG, Qual Negative - Radiology Data Radiology results: report reviewed, image reviewed Pelvic and transvaginal ultrasound demonstrates no evidence of ovarian torsion. Appears to be a physiologic ultrasound. Homogeneous uterus is noted. - Medical Decision Making Differential diagnosis: Ovarian cyst, pelvic inflammatory disease, menstruation , dysfunctional uterine bleeding Assessment and plan: 21-year-old female with suprapubic pain, vaginal bleeding. She is afebrile with reassuring vital signs. Her gynecologic examination is benign. Therefore think pelvic inflammatory disease is unlikely. [place] improved after pain medication and nausea medication. Patient will be discharged with as needed pain medication, nausea medication, instructions to follow up with outpatient [facility] Critical care attestation.: If time is entered above; I have spent that time in minutes in the direct care of this critically ill patient, excluding procedure time. ED Disposition Clinical Impression: Dysmenorrhea Disposition: - TO HOME OR SELFCARE Is pt being admited?: No Does the pt Need Aspirin: No Condition: Stable Instructions: Dysfunctional Uterine Bleeding (ED) Additional Instructions: Take the pain medication, nausea medication as directed. Follow up with an OB/ [facility] doctor within the next 2-3 weeks. Cultures were sent today, was also be available in the next 3-5 days. Please have a primary care doctor or manager market development contact the medical records department to obtain culture results. Return to the ER right away with new pain, worsened pain, migration of pain, fevers, chills, chest pain, shortness of breath, intractable nausea or vomiting , confusion, bleeding more than 2 pads soaked through and through per hour, dizziness, lightheadedness. Prescriptions: Ibuprofen [Motrin] 600 mg PO Q8H PRN #30 tablet PRN Reason: Pain Ondansetron [Zofran Odt] 4 mg PO QID PRN #20 tab.rapdis PRN Reason: Nausea Referrals: PRIMARY CARE, [Primary Care Provider] - 3-5 Days [facility] [Provider Group] - 3-5 Days [facility] [Provider Group] - 3-5 Days
[2017-03-09] MEDS ORDERED: ZOFRAN IV ONE (15:07)
[2017-03-09] MEDS ORDERED: TORADOL IV ONE (15:07)
[2017-03-09] MEDS ORDERED: MORPHINE IV ONE (15:07)
--- NOTE | 2017-03-09 16:03 | Ultrasound Report ---
ULTRASOUND PELVIS DUPLEX DOPPLER COMPLETE - TRANSABDOMINAL AND TRANSVAGINAL: INDICATION: Pelvic pain. Vaginal bleeding. COMPARISON: None similar. FINDINGS: Transabdominal and transvaginal pelvic sonography with spectral Doppler performed in this patient with LMP of 03/08/2017 and demonstrates a homogenous, anteverted 6.4 x 3.3 x 3.4 cm uterus with endometrial thickness of 0.9 cm, endovaginal image 11. No significant free fluid. Right ovary is 3.3 x 2.9 x 1.8 cm. Left ovary measures 3.4 x 2.6 x 1.8 cm. Preserved bilateral ovarian blood flow. CONCLUSION: Physiologic pelvic sonogram, as described. Thank you for the opportunity to participate in this patient's care.
[2017-03-09 17:52] VITALS: BP 118/76
== END 2017-03-09 15:20 | disposition home or self-care (01) ==
LOC: ED 12:03
DX: N94.6 Dysmenorrhea, unspecified (principal); E11.9 Type 2 diabetes mellitus without complications; F17.200 Nicotine dependence, unspecified, uncomplicated
CPT/HCPCS: 36415; 76830; 80048; 81001; 81025; 85027; 87591; 93975; 96374; 96375; 99284; J1885; J2270; J2405

== ENCOUNTER 2017-04-28 00:18 | Emergency (ER) | payer SELFPAY ==
[2017-04-28 02:56] LABS: Hematocrit 47.4 % (30.3-42.9); Hemoglobin 15.8 gm/dl (10.1-14.3); Mean Corpuscular HGB Conc 33 % (30-34); Mean Corpuscular Hemoglobin 28 pg (28-32); Mean Corpuscular Volume 85 fl (79-97); Platelet Count 310 K/mm3 (140-440); Red Blood Count 5.59 M/mm3 (3.65-5.03); Red Cell Distribution Width 13.3 % (13.2-15.2); White Blood Count 11.9 K/mm3 (4.5-11.0)
[2017-04-28 02:57] LABS: Alanine Aminotransferase 33 units/L (7-56); Albumin 3.7 g/dL (3.9-5); Albumin/Globulin Ratio 0.9 %; Alkaline Phosphatase 84 units/L (35-129); Anion Gap 21 mmol/L; Blood Urea Nitrogen 3 mg/dL (7-17); Calcium 9.3 mg/dL (8.4-10.2); Carbon Dioxide 24 mmol/L (22-30); Chloride 95.7 mmol/L (98-107); Glucose 403 mg/dL (65-100); Lipase 18 units/L (13-60); Potassium 4.3 mmol/L (3.6-5.0); Sodium 136 mmol/L (137-145); Total Protein 7.6 g/dL (6.3-8.2)
[2017-04-28 03:12] LABS: Bacteria,Urine 2+ /HPF (Negative); Bilirubin,Urine NEG (Negative); Blood,Urine NEG (Negative); Ketones,Urine NEG (Negative); Leukocyte Esterase,Urine SM (Negative); Nitrite,Urine NEG (Negative); Protein,Urine <15 mg/dL mg/dL (Negative); Urobilinogen,Urine < 2.0 mg/dL (<2.0)
[2017-04-28 05:16] VITALS: BP 130/66
[2017-04-28] MEDS ORDERED: TYLENOL PO ONE (05:19)
[2017-04-28] MEDS ORDERED: MOTRIN PO ONE (05:19)
--- NOTE | 2017-04-28 05:20 | Emergency Department Report ---
ED General Adult HPI - General Chief complaint: Abdominal Pain Stated complaint: ABD PAIN Time Seen by Provider: 04/28/17 05:14 Source: patient Mode of arrival: Ambulatory Limitations: No Limitations - History of Present Illness Initial comments: Patient is a 21-year-old female past medical history of type 2 diabetes who presents with suprapubic pain and dysuria. Patient has had some burning when she urinates it is a 6 out of 10 urinary resource up and makes it better. Patient states the pain is located in her suprapubic area it does not radiate anywhere. Patient also denies being nauseous. It is a crampy type of pain. Patient also states that she has not been compliant with her metformin medication because whenever she takes it she feels nauseous. Patient denies any vision changes, vaginal bleeding or any fever. - Related Data Previous Rx's Medication Instructions Recorded Last Taken Type Sulfamethoxazole/Trimethoprim 1 tab PO BID #10 tab 04/28/17 Unknown Rx [Bactrim 400-80 mg] Allergies Allergy/AdvReac Type Severity Reaction Status Date / Time No Known Allergies Allergy Verified 04/28/17 05:16 ED Review of Systems ROS: Stated complaint: ABD PAIN Other details as noted in HPI Constitutional: denies: chills, fever Eyes: denies: eye pain, eye discharge, vision change ENT: denies: ear pain, throat pain Respiratory: denies: cough, shortness of breath, wheezing Cardiovascular: denies: chest pain, palpitations Endocrine: no symptoms reported Gastrointestinal: denies: abdominal pain, nausea, diarrhea Genitourinary: dysuria. denies: urgency, discharge Musculoskeletal: denies: back pain, joint swelling, arthralgia Skin: denies: rash, lesions Neurological: denies: headache, weakness, paresthesias Psychiatric: denies: anxiety, depression Hematological/Lymphatic: denies: easy bleeding, easy bruising ED Past Medical Hx - Past Medical History Hx Hypertension: No Hx CVA: No Hx Heart Attack/AMI: No Hx Congestive Heart Failure: No Hx Diabetes: Yes (type 2) Hx Deep Vein Thrombosis: No Hx Pulmonary Embolism: No Hx GERD: No Hx Liver Disease: No Hx Renal Disease: No Hx Arthritis: No Hx Headaches / Migraines: No Hx Seizures: No Hx Kidney Stones: No Hx Psychiatric Treatment: No Hx Asthma: No Hx COPD: No Hx Tuberculosis: No Hx Dementia: No Hx HIV: No - Surgical History Hx Coronary Stent: No Hx Open Heart Surgery: No Hx Pacemaker: No Hx Internal Defibrillator: No Hx Cholecystectomy: No Hx Appendectomy: No Hx Breast Surgery: No - Social History Smoking Status: Never Smoker Substance Use Type: Alcohol - Medications Home Medications: Home Medications Medication Instructions Recorded Confirmed Last Taken Type Sulfamethoxazole/Trimethoprim 1 tab PO BID #10 tab 04/28/17 Unknown Rx [Bactrim 400-80 mg] ED Physical Exam - General Limitations: No Limitations General appearance: alert, in no apparent distress - Head Head exam: Present: atraumatic, normocephalic - Eye Eye exam: Present: normal appearance - ENT ENT exam: Present: mucous membranes moist - Neck Neck exam: Present: normal inspection - Respiratory Respiratory exam: Present: normal lung sounds bilaterally. Absent: respiratory distress - Cardiovascular Cardiovascular Exam: Present: regular rate, normal rhythm. Absent: systolic murmur, diastolic murmur, rubs, gallop - GI/Abdominal GI/Abdominal exam: Present: soft, normal bowel sounds - Extremities Exam Extremities exam: Present: normal inspection - Back Exam Back exam: Present: normal inspection - Neurological Exam Neurological exam: Present: alert, oriented X3 - Psychiatric Psychiatric exam: Present: normal affect, normal mood - Skin Skin exam: Present: warm, dry, intact, normal color. Absent: rash ED Course Vital Signs 04/28/17 04/28/17 04/28/17 02:10 04:34 05:15 Temperature 98.8 F 98.6 F Pulse Rate 85 84 88 Respiratory 18 20 Rate Blood Pressure 123/85 131/89 Blood Pressure 130/66 [Left] O2 Sat by Pulse 100 100 98 Oximetry ED Medical Decision Making - Lab Data Result diagrams: 04/28/17 02:17 04/28/17 02:17 Lab Results 04/28/17 04/28/17 04/28/17 Range/Units 02:17 02:17 Unknown WBC 11.9 H (4.5-11.0) K/mm3 RBC 5.59 H (3.65-5.03) M/mm3 Hgb 15.8 H (10.1-14.3) gm/dl Hct 47.4 H (30.3-42.9) % MCV 85 (79-97) fl MCH 28 (28-32) pg MCHC 33 (30-34) % RDW 13.3 (13.2-15.2) % Plt Count 310 (140-440) K/mm3 Lymph # Optometrist Owner Add Manual Diff Complete Total Counted 100 Seg Neuts % (Manual) 37.0 L (40.0-70.0) % Band Neutrophils % 11.0 % Lymphocytes % (Manual) 37.0 H (13.4-35.0) % Reactive Lymphs % (Man) 0 % Monocytes % (Manual) 6.0 (0.0-7.3) % Eosinophils % (Manual) 8.0 H (0.0-4.3) % Basophils % (Manual) 0 (0.0-1.8) % Metamyelocytes % 1.0 % Myelocytes % 0 % Promyelocytes % 0 % Blast Cells % 0 % Nucleated RBC % Not Reportable Seg Neutrophils # Man 4.4 (1.8-7.7) K/mm3 Band Neutrophils # 1.3 K/mm3 Lymphocytes # (Manual) 4.4 (1.2-5.4) K/mm3 Abs React Lymphs (Man) 0.0 K/mm3 Monocytes # (Manual) 0.7 (0.0-0.8) K/mm3 Eosinophils # (Manual) 1.0 H (0.0-0.4) K/mm3 Basophils # (Manual) 0.0 (0.0-0.1) K/mm3 Metamyelocytes # 0.1 K/mm3 Myelocytes # 0.0 K/mm3 Promyelocytes # 0.0 K/mm3 Blast Cells # 0.0 K/mm3 WBC Morphology Not Reportable Hypersegmented Neuts Few Hyposegmented Neuts Not Reportable Hypogranular Neuts Not Reportable Smudge Cells Not Reportable Toxic Granulation Not Reportable Toxic Vacuolation Not Reportable Dohle Bodies Not Reportable Pelger-Huet Anomaly Not Reportable Adi Rods Not Reportable Platelet Estimate Appears normal Clumped Platelets Not Reportable Plt Clumps, EDTA Not Reportable Large Platelets Not Reportable Giant Platelets Not Reportable Platelet Satelliting Not Reportable Plt Morphology Comment Not Reportable RBC Morphology Not Reportable Dimorphic RBCs Not Reportable Polychromasia Not Reportable Hypochromasia Not Reportable Poikilocytosis Not Reportable Anisocytosis Few Microcytosis Not Reportable Macrocytosis Not Reportable Spherocytes Not Reportable Pappenheimer Bodies Not Reportable Sickle Cells Not Reportable Target Cells Not Reportable Tear Drop Cells Not Reportable Ovalocytes Not Reportable Helmet Cells Not Reportable Rodriguez-Mccune Bodies Not Reportable Foley Rings Not Reportable [place] Cells Not Reportable Bite Cells Not Reportable Crenated Cell Not Reportable Elliptocytes Not Reportable Acanthocytes (Spur) Not Reportable Rouleaux Not Reportable Hemoglobin C Crystals Not Reportable Schistocytes Not Reportable Malaria parasites Not Reportable Nick Bodies Not Reportable Hem Pathologist Commnt No Sodium 136 L (137-145) mmol/L Potassium 4.3 (3.6-5.0) mmol/L Chloride 95.7 L (98-107) mmol/L Carbon Dioxide 24 (22-30) mmol/L Anion Gap 21 mmol/L BUN 3 L (7-17) mg/dL Creatinine 0.5 L (0.7-1.2) mg/dL Estimated GFR > 60 ml/min BUN/Creatinine Ratio 6.00 % Glucose 403 H (65-100) mg/dL Calcium 9.3 (8.4-10.2) mg/dL Total Bilirubin 0.40 (0.1-1.2) mg/dL AST 20 (5-40) units/L ALT 33 (7-56) units/L Alkaline Phosphatase 84 (35-129) units/L Total Protein 7.6 (6.3-8.2) g/dL Albumin 3.7 L (3.9-5) g/dL Albumin/Globulin Ratio 0.9 % Lipase 18 (13-60) units/L Urine Color Yellow (Yellow) Urine Turbidity Cloudy (Clear) Urine pH 6.0 (5.0-7.0) Urine Protein <15 mg/dl (Negative) mg/dL Urine Glucose (UA) >=500 (Negative) mg/dL Urine Ketones Neg (Negative) mg/dL Urine Blood Neg (Negative) Urine Nitrite Neg (Negative) Urine Bilirubin Neg (Negative) Urine Urobilinogen < 2.0 (<2.0) mg/dL Ur Leukocyte Esterase Sm (Negative) Urine WBC (Auto) 14.0 H (0.0-6.0) /HPF Urine RBC (Auto) 104.0 (0.0-6.0) /HPF U Epithel Cells (Auto) 48.0 H (0-13.0) /HPF Urine Bacteria (Auto) 2+ (Negative) /HPF Urine Yeast (Budding) 3+ /HPF Urine HCG, Qual Negative (Negative) - Medical Decision Making Chief medical diagnosis: Urinary tract infection Differential multiple diagnosis: Hyperglycemia, hypokalemia, pyelonephritis next CBC, CMP, urinalysis, Patient states that she does not want to take her metformin. Discussed with patient that she has hyperglycemia. Her blood sugars 400 patient has no evidence of DKA. In accordance to a subsequent clinical policy on hyperglycemia patient will be sent home patient is a type II diabetic and does not require any IV insulin or any IV fluids. She states that she is feeling fine and then her blood sugar typically runs this high. Discussed the patient the importance to take Bactrim and follow-up with her hyperglycemia. Patient states that she will follow up with the PCP on Sunday. Additional verbal discharge instructions were given. Critical care attestation.: If time is entered above; I have spent that time in minutes in the direct care of this critically ill patient, excluding procedure time. ED Disposition Clinical Impression: Hyperglycemia UTI (urinary tract infection) Qualifiers: Urinary tract infection type: acute cystitis Hematuria presence: without hematuria Qualified Code(s): N30.00 - Acute cystitis without hematuria Disposition: TO HOME OR SELFCARE Is pt being admited?: No Does the pt Need Aspirin: No Condition: Stable Instructions: Urinary Tract Infection in Women (ED), Abdominal Pain (ED) Prescriptions: Sulfamethoxazole/Trimethoprim [Bactrim 400-80 mg] 1 tab PO BID #10 tab Referrals: PRIMARY CARE, [Primary Care Provider] - 3-5 Days
[2017-04-28 06:23] LABS: Basophils % (Manual) 0 % (0.0-1.8); Blastocytes % (Manual) 0 %
[2017-04-28 06:24] LABS: Anisocytosis Few; Diff Status Complete; Hypersegmented Neutrophils Few
== END 2017-04-28 06:00 | disposition home or self-care (01) ==
LOC: ED 00:18
DX: N30.00 Acute cystitis without hematuria (principal); E11.65 Type 2 diabetes mellitus with hyperglycemia
CPT/HCPCS: 36415; 80053; 81001; 81025; 83690; 85007; 85025; 87086

== ENCOUNTER 2019-09-14 18:46 | Emergency (ER) | payer SELFPAY ==
--- NOTE | 2019-09-14 19:10 | Emergency Department Report ---
Blank Doc - Documentation Documentation: 23-year-old female that presents with lower back pains with radiation to pelvic area. This initial assessment/diagnostic orders/clinical plan/treatment(s) is/are subject to change based on patient's health status, clinical progression and re- assessment by fellow clinical providers in the ED. Further treatment and workup at subsequent clinical providers discretion. Patient/guardians urged not to elope from the ED as their condition may be serious if not clinically assessed and managed. Initial orders include: 1- Patient sent to [facility] for further evaluation and treatment 2- UA
[2019-09-14 19:16] VITALS: BP 148/96
[2019-09-14 19:48] LABS: HCG Qualitative,Urine Negative (Negative)
[2019-09-14 19:59] LABS: Bacteria,Urine 1+ /HPF (Negative); Bilirubin,Urine NEG (Negative); Blood,Urine SM (Negative); Color,Urine Yellow (Yellow); Protein,Urine <15 mg/dL mg/dL (Negative); Urobilinogen,Urine < 2.0 mg/dL (<2.0)
--- NOTE | 2019-09-14 20:36 | Emergency Department Report ---
HPI - General Chief Complaint: Back Pain/Injury Time Seen by Provider: 09/14/19 19:[address] - [facility] HPI: Room 29 The patient is a 23-year-old female presenting with a chief complaint of low back pain and suprapubic abdominal pain. Patient states she's had this pain intermittently for 2 weeks. Patient states she is unable to explain the quality of the pain. Patient states the pain comes and goes. Patient denies dysuria or hematuria. Patient denies vaginal discharge. Patient states her LMP was 09/03/2019 and this was late for her. Location: [See above] Duration: [See above] Quality: [See above] Severity: [See above] Timing: [See above] Context: [See above] Modifying factors: [See above] Associated signs and symptoms: [see above] ED Past Medical Hx - Past Medical History Previous Medical History?: Yes Hx Diabetes: Yes (type 2) - Family History Family history: no significant - Social History Smoking Status: Current Every Day Smoker (1/6 pack per day) Substance Use Type: None (denies illicit drug use), Alcohol (occasional) - Medications Home Medications: Home Medications Medication Instructions Recorded Confirmed Last Taken Type Sulfamethoxazole/Trimethoprim 1 tab PO BID #10 tab 04/28/17 Unknown Rx [Bactrim 400-80 mg] Ciprofloxacin HCl [Ciprofloxacin 500 mg PO Q12HR #6 tab 09/14/19 Unknown Rx TAB] Cyclobenzaprine [Flexeril] 10 mg PO TID PRN #10 tablet 09/14/19 Unknown Rx Ibuprofen [Motrin 800 MG tab] 800 mg PO Q8HR PRN #20 tablet 09/14/19 Unknown Rx ED Review of Systems ROS: Stated complaint: LOWER BACK PAIN Other details as noted in HPI Constitutional: no symptoms reported Eyes: denies: eye pain ENT: denies: throat pain Respiratory: no symptoms reported Cardiovascular: denies: chest pain Endocrine: no symptoms reported Gastrointestinal: abdominal pain Genitourinary: abnormal menses. denies: dysuria, frequency, hematuria, discharge Musculoskeletal: back pain Neurological: denies: headache Physical Exam - Physical Exam Vital Signs: Vital Signs 09/14/19 19:14 Temperature 98.2 F Pulse Rate 99 H Respiratory 18 Rate Blood Pressure 148/96 O2 Sat by Pulse 100 Oximetry Physical Exam: GENERAL: The patient is well-developed well-nourished female sitting in chair not appearing to be in acute distress. [] HEENT: Normocephalic. Atraumatic. Extraocular motions are intact. Patient has moist mucous membranes. NECK: Supple. Trachea midline CHEST/LUNGS: Clear to auscultation. There is no respiratory distress noted. HEART/CARDIOVASCULAR: Regular. There is no tachycardia. There is no gallop rub or murmur. ABDOMEN: Abdomen is soft, with trace suprapubic discomfort. Patient has normal bowel sounds. There is no abdominal distention. SKIN: There is no rash. There is no edema. There is no diaphoresis. NEURO: The patient is awake, alert, and oriented. The patient is cooperative. The patient has normal speech MUSCULOSKELETAL: There is no CVA tenderness. There is no evidence of acute injury. ED Course Vital Signs 09/14/19 19:14 Temperature 98.2 F Pulse Rate 99 H Respiratory 18 Rate Blood Pressure 148/96 O2 Sat by Pulse 100 Oximetry ED Medical Decision Making - Lab Data Laboratory Tests 09/14/19 19:36 Urine Color Yellow Urine Turbidity Slightly-cloudy Urine pH 7.0 Ur Specific Blairs 1.029 Urine Protein <15 mg/dl Urine Glucose (UA) >=500 Urine Ketones Neg Urine Blood Sm Urine Nitrite Neg Ur Reducing Substances Not Reportable Urine Bilirubin Neg Urine Ictotest Not Reportable Urine Urobilinogen < 2.0 Ur Leukocyte Esterase Lg Urine WBC (Auto) 15.0 H Urine RBC (Auto) 38.0 U Epithel Cells (Auto) 5.0 Urine Bacteria (Auto) 1+ Urine HCG, Qual Negative - Differential Diagnosis UTI, lumbar pain, pyelonephritis Critical care attestation.: If time is entered above; I have spent that time in minutes in the direct care of this critically ill patient, excluding procedure time. ED Disposition Clinical Impression: UTI (urinary tract infection), Back pain Disposition: [id number]-01 TO HOME OR SELFCARE Is pt being admited?: No Does the pt Need Aspirin: No Condition: Stable Instructions: Urinary Tract Infection in Women (ED) Additional Instructions: Return to the emergency department should you develop worsening symptoms, inability to tolerate food or liquids, high fever or any other concerns Prescriptions: Ciprofloxacin HCl [Ciprofloxacin TAB] 500 mg PO Q12HR #6 tab Cyclobenzaprine [Flexeril] 10 mg PO TID PRN #10 tablet PRN Reason: Muscle Spasm Ibuprofen [Motrin 800 MG tab] 800 mg PO Q8HR PRN #20 tablet PRN Reason: Pain, Moderate (4-6) Referrals: LORENZA HARDWICK MD [Staff Physician] - 3-5 Days Time of Disposition: 20:38
== END 2019-09-14 20:43 | disposition home or self-care (01) ==
LOC: ED 18:46
DX: N39.0 Urinary tract infection, site not specified (principal); E11.9 Type 2 diabetes mellitus without complications; F17.210 Nicotine dependence, cigarettes, uncomplicated; Z79.899 Other long term (current) drug therapy
CPT/HCPCS: 81001; 81025; 87086